=== PATIENT | male | born 1955 | race Asian ===

== ENCOUNTER → 2018-08-05 | Day surgery (SDC) | payer OTHER ==
[2018-06-30 09:31] LABS: BASOPHILS % 0.7 % (0.0-1.0); EOSINOPHILS # (AUTO) 0.3 (0.0-0.4); EOSINOPHILS % 6.2 % (0.0-6.0); HEMATOCRIT 45.7 % (38.2-49.6); HEMOGLOBIN 15.5 g/dL (14.0-18.0); LYMPHOCYTES # (AUTO) 1.2 (1.0-3.2); LYMPHOCYTES % 29.3 % (18.0-39.1); MEAN CORPUSCULAR HEMOGLOBIN 32.7 pg (28-32); MEAN CORPUSCULAR HGB CONC 33.9 g/dL (31-35); MEAN CORPUSCULAR VOLUME 96.4 fL (81-99); MONOCYTES # (AUTO) 0.3 (0.2-0.8); MONOCYTES % 7.7 % (4.4-11.3); NEUTROPHILS # (AUTO) 2.3 (2.1-6.9); NEUTROPHILS % 55.6 % (38.7-80.0); PLATELET COUNT 136 x10e3/uL (140-360); RED BLOOD COUNT 4.74 x10e6/uL (4.3-5.7)
[2018-06-30 09:39] LABS: INR 0.99; PARTIAL THROMBOPLASTIN TIME 34.8 seconds (23.8-35.5); PROTHROMBIN TIME 13.6 seconds (11.9-14.5)
[2018-06-30 09:47] LABS: ALANINE AMINOTRANSFERASE 17 IU/L (0-55); ALBUMIN 3.8 g/dL (3.5-5.0); ALBUMIN/GLOBULIN RATIO 1.1 (0.8-2.0); ALKALINE PHOSPHATASE 43 IU/L (40-150); ANION GAP 12.3 mmol/L (8-16); BLOOD UREA NITROGEN 16 mg/dL (7-26); BUN/CREATININE RATIO 16 (6-25); CALCIUM 9.7 mg/dL (8.4-10.2); CARBON DIOXIDE 30 mmol/L (22-29); CHLORIDE 102 mmol/L (98-107); CREATININE, SERUM 0.98 mg/dL (0.72-1.25); EST GLOMERULAR FILTRATION RATE > 60 ML/MIN (60-); GLUCOSE 112 mg/dL (74-118); POTASSIUM 4.3 mmol/L (3.5-5.1); SODIUM 140 mmol/L (136-145)
[2018-08-02 09:09] LABS: BASOPHILS % 0.7 % (0.0-1.0); EOSINOPHILS # (AUTO) 0.4 (0.0-0.4); HEMATOCRIT 44.4 % (38.2-49.6); HEMOGLOBIN 15.1 g/dL (14.0-18.0); LYMPHOCYTES # (AUTO) 1.4 (1.0-3.2); MEAN CORPUSCULAR HEMOGLOBIN 32.9 pg (28-32); MEAN CORPUSCULAR VOLUME 96.7 fL (81-99); MONOCYTES # (AUTO) 0.4 (0.2-0.8); MONOCYTES % 8.3 % (4.4-11.3); NEUTROPHILS # (AUTO) 2.2 (2.1-6.9); NEUTROPHILS % 49.8 % (38.7-80.0); PLATELET COUNT 135 x10e3/uL (140-360); RED BLOOD COUNT 4.59 x10e6/uL (4.3-5.7); RED CELL DISTRIBUTION WIDTH 11.8 % (11.7-14.4)
[2018-08-02 09:14] LABS: INR 0.91; PROTHROMBIN TIME 12.7 seconds (11.9-14.5)
[2018-08-02 09:15] LABS: PARTIAL THROMBOPLASTIN TIME 34.6 seconds (23.8-35.5)
[2018-08-02 09:24] LABS: ALANINE AMINOTRANSFERASE 28 IU/L (0-55); ALBUMIN 4.1 g/dL (3.5-5.0); ALBUMIN/GLOBULIN RATIO 1.2 (0.8-2.0); ALKALINE PHOSPHATASE 46 IU/L (40-150); ANION GAP 8.4 mmol/L (8-16); BLOOD UREA NITROGEN 16 mg/dL (7-26); BUN/CREATININE RATIO 17 (6-25); CALCIUM 9.6 mg/dL (8.4-10.2); CARBON DIOXIDE 31 mmol/L (22-29); CHLORIDE 101 mmol/L (98-107); CREATININE, SERUM 0.94 mg/dL (0.72-1.25); EST GLOMERULAR FILTRATION RATE > 60 ML/MIN (60-); GLUCOSE 107 mg/dL (74-118); POTASSIUM 4.4 mmol/L (3.5-5.1); SODIUM 136 mmol/L (136-145)
[~2018-08-05] MED LIST: CLINDAMYCIN 300MG 50 ML IV ONE; FENTANYL CITRATE/PF 100MCG/2 ML INJ ONE; GENTAMICIN 120MG/NS 100ML 100 ML ONE; LIDOCAINE HCL 2% LOCAL INJ 5 ML SDV VIAL INJ ONE; MIDAZOLAM HCL 2 MG/2 ML VIAL ONE; PROPOFOL IV EMULSION 10 MG/ML 20 ML VIAL ONE; PROPRANOLOL HCL40 MG PO; RESTASIS1 EACH OP; SUMATRIPTAN SUC25 MG PO; [UNRECOGNIZED DRUG - OTHER] PO
--- OUTSIDE RECORDS SUMMARY | 2018-08-05 07:22 | XMS REPORT | Clinical Summary ---
Author Author [employer] [employer] [facility] Address Unknown Phone Unavailable Care Team Providers Care Quirk Sander Name Role Phone PCP Unavailable Allergies Not on File Medications Not on file Active Problems Not on file Social History Date Tobacco Use Types Packs/Day Years Used Never Assessed Sex Assigned at Date Recorded Not on file Industry Job Start Date Occupation Not on file Not on file Not on file Travel End Travel History Travel Start No recent travel history available. Last Filed Vital Signs Not on file Plan of Treatment Not on file Results Not on fileafter 08/04/2017 Insurance Payer Benefit Subscriber ID Type Phone Address Plan / Group AETNA - [facility] C[facility] AETNA xxxxxxxxxx [employer] POS
--- OUTSIDE RECORDS SUMMARY | 2018-08-05 07:22 | XMS REPORT | Clinical Summary ---
Author Author [employer] Organization [employer] Address Unknown Phone Unavailable Care Team Providers Care Passenger Interline Clerk Name Role Phone Medardo Bacon MD PCP Allergies No Known Allergies Medications End Date Status Medication Sig Dispensed Refills Start Date Active SUMAtriptan (IMITREX) 50 Take 50 mg by 0 MG tablet mouth once as needed. May repeat in 2 hours if unresolved. Do not exceed 200 mg in 24 hours. Active tenofovir alafenamide Take 25 mg by 0 fumarate 25 mg tablet mouth daily. Active glimepiride (AMARYL) 4 MG Take 4 mg by 0 tablet mouth daily before breakfast. 07/13/2018 Discontinued propranolol (INDERAL) 60 Take 60 mg by 0 MG tablet mouth daily. 07/13/2018 Discontinued simvastatin (ZOCOR) 10 MG Take 10 mg by 0 tablet mouth nightly. 07/13/2018 Discontinued pantoprazole (PROTONIX) Take 40 mg by 0 40 MG EC tablet mouth daily. 07/13/2018 Discontinued metFORMIN XR Take 2 0 (GLUCOPHAGE-XR) 500 mg 24 tablets by hr tablet mouth 2 (two) times a day. 07/13/2018 Discontinued lisinopril Take 0.5 0 (PRINIVIL,ZESTRIL) 20 mg tablets by tablet mouth daily. 07/13/2018 Discontinued gabapentin (NEURONTIN) Take 300 mg 0 300 mg capsule by mouth 3 (three) times a day. 07/13/2018 Discontinued methocarbamol (ROBAXIN) Take 750 mg 0 750 MG tablet by mouth daily. 07/13/2018 Discontinued sitaGLIPtin (JANUVIA) 100 Take 100 mg 0 MG tablet by mouth daily. 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 Elevated PSA 06/14/2018 Overview: Ongoing evaluation by Dr. Asher Chisholm Hydrocele, right 06/14/2018 Overview: 8.9 cm septated R scrotal hydrocele, per 06/27/2018 scrotal US Brugada syndrome 06/14/2018 Overview: Treated with defibrillator placement 2001, generator replacement 2010; no clinical defibrillation Hepatitis B carrier 06/12/2018 Overview: On daily viral suppressive therapy Other hyperlipidemia 06/12/2018 History of migraine headaches 06/12/2018 Raynaud's disease without gangrene 06/12/2018 Overview: Bilateral hand numbness with cold exposure Encounters Care Team Description Date Type Specialty Danielito Pulliam MD Hydrocele, right (Primary Dx); Brugada syndrome; Other hyperlipidemia; Hepatitis B carrier (HCC); Mantoux: positive; PUD (peptic ulcer disease); Chronic idiopathic constipation; Raynaud's disease without gangrene; History of migraine headaches; Elevated PSA 07/19/2018 Office Visit General Surgery Danielito Pulliam MD Hydrocele in adult 06/27/2018 Hospital Radiology Encounter Danielito Pulliam MD Hydrocele in adult (Primary Dx); Brugada syndrome; Other hyperlipidemia; Hepatitis B carrier (HCC); Mantoux: positive; PUD (peptic ulcer disease); Chronic idiopathic constipation; Raynaud's disease without gangrene; History of migraine headaches; Elevated PSA 06/14/2018 Office Visit General Surgery after 08/04/2017 Family History Medical History Relation Name Comments Liver cancer Father Stroke Mother Hypertension Sister Relation Name Status Comments Father Mother Sister Social History Date Tobacco Use Types Packs/Day Years Used Never Smoker Smokeless Tobacco: Never Used Alcohol Use Drinks/Week oz/Week Comments No Alcohol Habits Answer Date Recorded How often do you have a drink containing alcohol? Never 06/08/2018 How many drinks containing alcohol do you have on Not asked a typical day when you are drinking? How often do you have six or more drinks on one Not asked occasion? Sex Assigned at Date Recorded Not on file Industry Job Start Date Occupation Not on file Not on file Not on file Travel End Travel History Travel Start No recent travel history available. Last Filed Vital Signs Time Taken Vital Sign Reading 07/19/2018 3:24 PM CDT Blood Pressure 173/79 07/19/2018 3:24 PM CDT Pulse 60 - Temperature - - Respiratory Rate - - Oxygen Saturation - - Inhaled Oxygen - Concentration 07/19/2018 3:24 PM CDT Weight 64.2 kg (141 lb 9.6 oz) 07/19/2018 3:24 PM CDT Height 172.7 cm (5' 8") 07/19/2018 3:24 PM CDT Body Mass Index 21.53 Plan of Treatment Health Maintenance Due Date Last Done Comments COLON CANCER SCREENING 2004 SHINGLES VACCINES (#1) 2004 INFLUENZA VACCINE 10/27/2018 Procedures Comments Procedure Name Priority Date/Time Associated Diagnosis US SCROTAL Routine 06/27/2018 Hydrocele in adult 7:05 PM CDT after 08/04/2017 Results * US Scrotal (06/27/2018 7:05 PM CDT) Narrative Performed At EXAMINATION:US SCROTAL [facility] CLINICAL HISTORY:N43.3 Hydroceleunspecified, hydrocele COMPARISON:None. TECHNIQUE:Sonographic evaluation of the scrotum. Real-time B mode grayscale, Doppler spectral analysis and Doppler color flow imaging was used to assess testicular vasculature. FINDINGS: RIGHT HEMISCROTUM: The right testicle measures 3.6 x 2 x 3.3 cm. There is a benign-appearing 3 mm intratesticular cyst. Testicular echogenicity is normal. No intratesticular masses are identified. There is normal color and duplex Doppler flow. The right epididymis is unremarkable. A large septated hydrocele is present. No varicocele. The hydrocele measures up to 8.9 cm.. LEFT HEMISCROTUM: The left testicle measures 4.1 x 2 x 2.8 cm.. Testicular echogenicity is normal. No intratesticular masses are identified. There is normal color and duplex Doppler flow. The left epididymis is unremarkable. There is no evidence of hydrocele or varicocele. IMPRESSION: Large septated right hydrocele. [id number] Procedure Note Hm Interface, Radiology Results Incoming - 06/27/2018 7:42 PM CDT EXAMINATION: US SCROTAL CLINICAL HISTORY: N43.3 Hydrocele unspecified, hydrocele COMPARISON: None. TECHNIQUE: Sonographic evaluation of the scrotum. Real-time B mode grayscale, Doppler spectral analysis and Doppler color flow imaging was used to assess testicular vasculature. FINDINGS: RIGHT HEMISCROTUM: The right testicle measures 3.6 x 2 x 3.3 cm. There is a benign-appearing 3 mm intratesticular cyst. Testicular echogenicity is normal. No intratesticular masses are identified. There is normal color and duplex Doppler flow. The right epididymis is unremarkable. A large septated hydrocele is present. No varicocele. The hydrocele measures up to 8.9 cm.. LEFT HEMISCROTUM: The left testicle measures 4.1 x 2 x 2.8 cm.. Testicular echogenicity is normal. No intratesticular masses are identified. There is normal color and duplex Doppler flow. The left epididymis is unremarkable. There is no evidence of hydrocele or varicocele. IMPRESSION: Large septated right hydrocele. [id number] Performing Organization Address City/State/Zipcode Phone Number [facility] [phone] [place] [address] after 08/04/2017 Insurance Payer Benefit Subscriber ID Type Phone Address Plan / Group AETNA AETNA xxxxxxxxxx POS [employer] POS Advance Directives Patient has advance care planning documents on file. For more information, yoel e contact: Cordell Tong [address] [place] [address]
--- OUTSIDE RECORDS SUMMARY | 2018-08-05 07:22 | XMS REPORT ---
Author Author [facility] Address Unknown Phone Unavailable Care Team Providers Care Office Specialist Name Role Phone ELEAZAR HERRERA Unavailable Unavailable Problems This patient has no known problems. Allergies, Adverse Reactions, Alerts This patient has no known allergies or adverse reactions. Medications This patient has no known medications. Results Test Description Test Time Test Comments Text Results Atomic Results Result Comments BASIC METABOLIC PANEL 2017-06-07 16:37:00 SODIUM (BEAKER) (test yrwy=360) 141 meq/L 136-145 POTASSIUM (BEAKER) (test isyv=515) 4.6 meq/L 3.5-5.1 Specimen slightly hemolyzed CHLORIDE (BEAKER) (test intx=870) 104 meq/L 98-107 CO2 (BEAKER) (test mkpd=692) 30 meq/L 22-29 BLOOD UREA NITROGEN (BEAKER) (test pemi=849) 18 mg/dL 7-21 CREATININE (BEAKER) (test lult=425) 0.99 mg/dL 0.57-1.25 Specimen slightly hemolyzed GLUCOSE RANDOM (BEAKER) (test lvbx=940) 103 mg/dL 70-105 CALCIUM (BEAKER) (test suru=980) 9.6 mg/dL 8.4-10.2 EGFR (BEAKER) (test vqdz=0601) 76 mL/min/1.73 sq m ESTIMATED GFR IS NOT ACCURATE CREATININE CLEARANCE IN PREDICTING GLOMERULAR FILTRATION RATE. ESTIMATED GFR IS NOT APPLICABLE FOR DIALYSIS PATIENTS. CBC W/PLT COUNT & AUTO [id number] 16:14:00* Test Item Value Reference Range Comments WHITE BLOOD CELL COUNT (BEAKER) (test pojw=655) 5.2 K/ L 3.5-10.5 RED BLOOD CELL COUNT (BEAKER) (test gnvz=428) 4.70 M/ L 4.63-6.08 HEMOGLOBIN (BEAKER) (test cmht=707) 15.4 GM/DL 13.7-17.5 HEMATOCRIT (BEAKER) (test nrjy=786) 45.7 % 40.1-51.0 MEAN CORPUSCULAR VOLUME (BEAKER) (test apfn=880) 97.2 fL 79.0-92.2 MEAN CORPUSCULAR HEMOGLOBIN (BEAKER) (test zcye=061) 32.8 pg 25.7-32.2 MEAN CORPUSCULAR HEMOGLOBIN CONC (BEAKER) (test gihm=345) 33.7 GM/DL 32.3-36.5 RED CELL DISTRIBUTION WIDTH (BEAKER) (test hnwp=605) 11.7 % 11.6-14.4 PLATELET COUNT (BEAKER) (test yfnn=588) 143 K/CU MM 150-450 MEAN PLATELET VOLUME (BEAKER) (test csob=997) 9.6 fL 9.4-12.4 NUCLEATED RED BLOOD CELLS (BEAKER) (test kgzt=011) 0 /100 WBC 0-0 NEUTROPHILS RELATIVE PERCENT (BEAKER) (test tnnu=330) 56 % LYMPHOCYTES RELATIVE PERCENT (BEAKER) (test crlx=024) 31 % MONOCYTES RELATIVE PERCENT (BEAKER) (test vyvz=364) 9 % EOSINOPHILS RELATIVE PERCENT (BEAKER) (test scco=051) 3 % BASOPHILS RELATIVE PERCENT (BEAKER) (test awau=762) 0 % NEUTROPHILS ABSOLUTE COUNT (BEAKER) (test medc=574) 2.93 K/ L 1.78-5.38 LYMPHOCYTES ABSOLUTE COUNT (BEAKER) (test ljoe=136) 1.63 K/ L 1.32-3.57 MONOCYTES ABSOLUTE COUNT (BEAKER) (test lfnk=786) 0.46 K/ L 0.30-0.82 EOSINOPHILS ABSOLUTE COUNT (BEAKER) (test abwe=703) 0.17 K/ L 0.04-0.54 BASOPHILS ABSOLUTE COUNT (BEAKER) (test yjxt=565) 0.02 K/ L 0.01-0.08 IMMATURE GRANULOCYTES-RELATIVE PERCENT (BEAKER) (test pjsi=6237) 0 % 0-1
[2018-08-05 09:15] VITALS: BP 116/75
--- NOTE | 2018-08-09 14:58 | Operative Report ---
DATE OF PROCEDURE: 08/05/2018 SURGEON: Stan Chisholm MD PREOPERATIVE DIAGNOSIS: Elevated PSA of 15.1. POSTOPERATIVE DIAGNOSIS: Elevated PSA of 15.1. PROCEDURES: 1. Prostate ultrasound. 2. Needle biopsy of prostate. 3. Ultrasound guidance needle biopsy. INDICATIONS FOR PROCEDURE: Mr. Allen is a 63-year-old male with a PSA of 5.1. He and I had a long discussion about the alternatives, risks and benefits including doing nothing and prostate biopsy. He voiced understanding of the options, alternatives, the risks, and benefits and he elected to proceed. PROCEDURE IN DETAIL: After informed consent was obtained, the patient was taken to the operating suite and placed supine on the operating table and underwent general anesthesia by service. He was placed in left lateral decubitus position. Prostate ultrasound: Utilizing a plethora of lubrication, transrectal ultrasound probe was inserted rectally and prostate ultrasound was performed revealing normal-appearing seminal vesicles. There were calcifications densely in the middle aspect of the prostate bilaterally to the base, mid, and apex. Volume was calculated at 48 mL. Impression; scattered calcifications, volume 48 mL, BPH. Ultrasound guidance: I was present. I utilized the ultrasound probe to guide needle biopsy prostate. Needle biopsy of prostate. A total of 12 core samples were sent. The patient tolerated the procedure well, was transported to the recovery room in excellent condition with no untoward effects noted. Stan Chisholm MD ES/MODL /[id number]
== END | disposition home or self-care (01) ==
LOC: OR 06:56
PROVIDERS: ATTEND Urology
DX: C61 Malignant neoplasm of prostate (principal); N41.0 Acute prostatitis; Z95.810 Presence of automatic (implantable) cardiac defibrillator; R97.20 Elevated prostate specific antigen [PSA]; I25.10 Atherosclerotic heart disease of native coronary artery without angina pectoris; Z86.19 Personal history of other infectious and parasitic diseases; Z01.810 Encounter for preprocedural cardiovascular examination; Z01.812 Encounter for preprocedural laboratory examination
CPT/HCPCS: 36415 ×2; 55700; 76872; 76942; 80053 ×2; 85025 ×2; 85610 ×2; 85730 ×2; 88305; 88342; 93005; J1580; J2001; J2250; J2704